=== PATIENT | male | born 1980 | race Caucasian/White ===

== ENCOUNTER 2022-12-31 16:36 | Emergency (ER) | payer OTHER ==
[2022-12-31 17:48] VITALS: BP 112/79; PULSE 76
[2022-12-31] MEDS ORDERED: Bacitracin Oint 1 GM U/D Packet TOP ONE (18:31)
[2022-12-31] MEDS ORDERED: Lidocaine 1% 5 ML VIAL INJECT ONE (18:31)
[2022-12-31] MEDS ORDERED: Diphtheria,Pertussis(Acell),Tetanus Vaccine 0.5 ML Syringe IM ONE (18:49)
== END 2022-12-31 19:02 | disposition home or self-care (01) ==
LOC: JP.ED 16:36
DX: S61.217A Laceration without foreign body of left little finger without damage to nail, initial encounter (principal); Z23 Encounter for immunization; W27.8XXA Contact with other nonpowered hand tool, initial encounter
CPT/HCPCS: 64450; 73140-26-F4; 73140-F4; 90471; 90715; 99283-25